=== PATIENT | female | born 1960 | race Caucasian/White ===

== ENCOUNTER 2019-07-28 02:12 | Inpatient (IN) | payer BC, MEDICARE ==
[~2019-07-28] VITALS: Ht 165.1 cm; Wt 98.7 kg
[2019-07-28] MEDS ORDERED: methylPREDNISolone SOD SUCC 125 MG/2 ML VL IV ONE (03:30)
[2019-07-28] MEDS ORDERED: IPRATROPIUM BROM 0.5 MG/2.5ML INH SOL NEB ONE (03:30)
[2019-07-28] MEDS ORDERED: ALBUTEROL SULF 2.5 MG/0.5ML(0.5%) NEB SOLN NEB ONE (03:30)
[2019-07-28 05:56] LABS: Basophils # (auto) 0.1 uL; Eosinophils # (auto) 0.1 uL; Eosinophils % (auto) 0.8 % (0.0-7.0); Hematocrit 37.6 % (36.0-46.0); Hemoglobin 12.9 g/dL (12.2-16.2); Lymphocytes # (auto) 0.6 uL; Lymphocytes % (auto) 6.5 % (10.0-50.0); Mean Corpuscular Hemoglobin 32.1 pg (28.0-32.0); Mean Corpuscular Hgb Conc. 34.3 g/dL (32.0-36.0); Mean Corpuscular Volume 93.6 fL (80.0-100.0); Monocytes # (auto) 0.2 uL; Monocytes % (auto) 2.2 % (0.0-12.0); Neutrophils # (auto) 8.5 uL; Neutrophils % (auto) 89.5 % (37.0-80.0); Platelet Count (auto) 186 10^3/uL (140-450); Red Blood Cells 4.02 10^6/uL (4.0-5.20); Red Cell Distribution Width 14.8 % (11.8-14.3); White Blood Cell 9.5 10^3/uL (4.4-10.8)
[2019-07-28 06:22] LABS: Albumin 3.2 g/dL (3.4-5.0); Anion Gap 5 (5-15); Blood Urea Nitrogen 10 mg/dL (7-18); Calcium 8.3 mg/dL (8.5-10.1); Carbon Dioxide 29 mmol/L (21-32); Chloride 106 mmol/L (98-107); Glucose 109 mg/dL (74-106); Sodium 140 mmol/L (136-145)
[2019-07-28 06:24] LABS: INR 0.96 (0.9-1.15); Partial Thromboplastin Time 25.3 sec (23.64-32.05)
[2019-07-28 06:27] LABS: Alanine Aminotransferase 30 U/L (13-56); Alkaline Phosphatase 78 U/L (45-117); Aspartate Aminotransferase 16 U/L (15-37); BUN/Creatinine Ratio 15.6; GFR African American 122 mL/min; GFR Non-African American 101 mL/min; Total Protein 6.6 g/dL (6.4-8.2)
[2019-07-28 06:28] LABS: Potassium 2.4 mmol/L (3.5-5.1)
[2019-07-28] MEDS ORDERED: POTASSIUM EFFERVESENT TAB 25 MEQ PO ONE (06:45)
[2019-07-28] MEDS ORDERED: POTASSIUM CHL 20MEQ/100ML 100 ML IV ONE (06:45)
[2019-07-28] MEDS ORDERED: IOHEXOL 350 MG/ML 100ML IJ ONE (07:08)
[2019-07-28] MEDS ORDERED: diphenhdrAMINE HCL 50 MG/1 ML VL IV ONE (07:15)
[2019-07-28] MEDS ORDERED: FUROSEMIDE 20 MG/2 ML VIAL IV ONE ×2 (07:15→13:00)
[2019-07-28 07:38] LABS: Urine Bacteria FEW /hpf (None Seen); Urine Blood Negative /uL (Negative); Urine Specific Gravity 1.013 (1.001-1.035); Urine WBC 3 /hpf (0 - 5)
[2019-07-28] MEDS ORDERED: DOCUSATE SOD 100 MG CAP PO PRN (08:00)
[2019-07-28] MEDS ORDERED: ONDANSETRON HCL 4 MG/2 ML VIAL IV PRN ×2 (08:00→08:15)
[2019-07-28] MEDS ORDERED: ATENOLOL 25 MG TAB PO ONE (08:00)
[2019-07-28] MEDS ORDERED: MORPHINE SULF INJ 2 MG/ML SYRINGE 1ML IV PRN (08:00)
[2019-07-28] MEDS ORDERED: NITROGLYCERIN 0.4 MG SL TAB SL PRN (08:00)
[2019-07-28] MEDS ORDERED: ACETAMINOPHEN 325 MG TAB PO PRN (08:00)
[2019-07-28] MEDS ORDERED: LORazepam 0.5 MG TAB PO PRN (08:15)
[2019-07-28] MEDS ORDERED: ASPirin 81 mg TAB PO ONE (10:00)
[2019-07-28 11:00] VITALS: BP 136/75
--- NOTE | 2019-07-28 11:55 | NUR ---
CAME ON WC FROM ER, RECEIVED, PATIENT ALERT AND ORIENTED X4, NOT IN DISTRESS, CLEAR BILATERAL LUNG SOUNDS SOUND NOTED, RR=18 SAT=94%, DEEP BREATHING AND COUGHING ENCOURAGED, DEMONSTRATED WELL, SR R=76 ON TELE MONITOR DENIED CHEST PAIN AT THIS MOMENT, ABDOMEN SOFT WITH ACTIVE BS, LAT BM THIS MORNING REPORTED, SKIN DRY AND INTACT, RADIAL AND PEDAL PULSES PALPABLE, CAP REFILL <3 SECONDS, RESTING ON BED, HEAD OF BED ELEVATED, BED ON LOWER POSITION, RAILS UP, CALL LIGHT ON REACH, WILL CONTINUE MONITORING.
--- NOTE | 2019-07-28 12:30 | NUR ---
DR. VALERIO WAS CONTACTED FOR FOLLOW UP AND UPDATES, WILL FOLLOW UP WITH THE PATIENT REPORTED, WILL CONTINUE MONITORING.
[2019-07-28 13:00] VITALS: BP 148/72
[2019-07-28] MEDS ORDERED: POTASSIUM CHL 20 Meq TABLET PO ONE (13:00)
[2019-07-28] MEDS ORDERED: LISINOPRIL 10 MG TAB PO ONE (13:15)
[2019-07-28] MEDS ORDERED: ZALE10CA44 PO (13:16)
[2019-07-28] MEDS ORDERED: TIZA4CAP PO (13:16)
[2019-07-28] MEDS ORDERED: VERA120T10 PO (13:16)
[2019-07-28] MEDS ORDERED: HYDR25TA4 PO (13:16)
[2019-07-28] MEDS ORDERED: MULT-2 OR (13:16)
[2019-07-28] MEDS ORDERED: ATOR20TA50 PO (13:16)
[2019-07-28] MEDS ORDERED: OME20GT GT (13:16)
[2019-07-28] MEDS ORDERED: BUPR200T2 PO (13:16)
[2019-07-28] MEDS ORDERED: CITA-73 PO (13:16)
[2019-07-28] MEDS ORDERED: ASPI-404 PO (13:16)
[2019-07-28] MEDS ORDERED: ATEN-60 PO (13:16)
[2019-07-28] MEDS ORDERED: POTA1TAB61 PO (13:16)
[2019-07-28] MEDS: HYDROcodone-ACET 5/325MG TAB PO PRN (15:12)
[2019-07-28 15:18] VITALS: BP 142/77
[2019-07-28 16:08] LABS: Alcohol, Urine < 3.0 mg/dL (0-5); Amphetamine Screen, Urine NEGATIVE (NEGATIVE); Barbiturate Scree,Urine NEGATIVE (NEGATIVE); Benzodiazephine Screen, Urine NEGATIVE (NEGATIVE); Cannabinoid Screen, Urine POSITIVE (NEGATIVE); Cocaine Screen, Urine NEGATIVE (NEGATIVE); Opiate Scree,Urine POSITIVE (NEGATIVE); Phencyclidine Screen, Urine NEGATIVE (NEGATIVE)
[2019-07-28 17:32] VITALS: BP 105/67
[2019-07-28] MEDS: LORazepam 0.5 MG TAB PO PRN (18:22)
[2019-07-28] MEDS: ALBUTEROL SULF 2.5 MG/0.5ML(0.5%) NEB SOLN NEB SCH (18:30)
[2019-07-28] MEDS: IPRATROPIUM BROM 0.5 MG/2.5ML INH SOL NEB SCH (18:30)
--- NOTE | 2019-07-28 19:32 | NUR ---
NOT IN DISTRESS, AMA FOR SMOKING SIGNED AND ON CHART, REPORT WAS GIVEN TO THE MEDICAL DEVICE ENGINEER RN.
--- NOTE | 2019-07-28 20:38 | NUR ---
Opening Shift Note Assumed care of patient, patient out of bed walking with family member. No S/S of distress/SOB or pain. Instructed on POC and to call for assistance PRN, will continue to monitor for changes Q1hr and PRN.
[2019-07-28 22:00] VITALS: BP 138/68
[2019-07-28] MEDS: METOPROLOL TARTRATE 25 MG TAB PO SCH (22:06)
[2019-07-28] MEDS: ATORVASTATIN 20 MG TAB PO SCH (22:07)
[2019-07-28] MEDS: MORPHINE SULFATE 4 MG/ML SYR/VIAL IV PRN (22:32)
[2019-07-29 05:09] VITALS: BP 129/59
[2019-07-29 06:08] LABS: Basophils # (auto) 0.1 uL; Basophils % (auto) 0.6 % (0.0-2.0); Eosinophils # (auto) 0.1 uL; Eosinophils % (auto) 1.1 % (0.0-7.0); Hematocrit 35.9 % (36.0-46.0); Hemoglobin 12.4 g/dL (12.2-16.2); Lymphocytes # (auto) 1.7 uL; Lymphocytes % (auto) 18.8 % (10.0-50.0); Mean Corpuscular Hemoglobin 32.8 pg (28.0-32.0); Mean Corpuscular Hgb Conc. 34.6 g/dL (32.0-36.0); Mean Corpuscular Volume 94.9 fL (80.0-100.0); Monocytes # (auto) 0.7 uL; Monocytes % (auto) 7.3 % (0.0-12.0); Neutrophils # (auto) 6.7 uL; Neutrophils % (auto) 72.2 % (37.0-80.0); Nucleated Red Blood Cells % 0.1 %; Platelet Count (auto) 185 10^3/uL (140-450); Red Blood Cells 3.78 10^6/uL (4.0-5.20); Red Cell Distribution Width 14.9 % (11.8-14.3); White Blood Cell 9.2 10^3/uL (4.4-10.8)
[2019-07-29 06:34] LABS: BUN/Creatinine Ratio 22.5; Calcium 8.1 mg/dL (8.5-10.1); Magnesium 1.7 mg/dL (1.6-2.6)
[2019-07-29 06:36] LABS: Potassium 2.9 mmol/L (3.5-5.1)
--- NOTE | 2019-07-29 06:42 | NUR ---
Called/paged Dr. Bray called re:critical K 2.9 . Waiting for call back. Continue care.
[2019-07-29] MEDS: IPRATROPIUM BROM 0.5 MG/2.5ML INH SOL NEB SCH ×3 (06:57→18:53)
[2019-07-29] MEDS: ALBUTEROL SULF 2.5 MG/0.5ML(0.5%) NEB SOLN NEB SCH ×3 (06:58→18:53)
--- NOTE | 2019-07-29 07:20 | NUR ---
REPORT GIVEN CARE ENDORSED TO DAY RN
--- NOTE | 2019-07-29 08:00 | NUR ---
RECEIVED, PATIENT ALERT AND ORIENTED X4, NOT IN DISTRESS, CLEAR BILATERAL LUNG SOUNDS SOUND NOTED, RR=18 SAT=93%, DEEP BREATHING AND COUGHING ENCOURAGED, DEMONSTRATED WELL, SR R=74 ON TELE MONITOR DENIED CHEST PAIN AT THIS MOMENT, ABDOMEN SOFT WITH ACTIVE BS, LAT BM 07/28/19 REPORTED, SKIN DRY AND INTACT, RADIAL AND PEDAL PULSES PALPABLE, CAP REFILL <3 SECONDS, RESTING ON BED, HEAD OF BED ELEVATED, BED ON LOWER POSITION, RAILS UP, CALL LIGHT ON REACH, PENDING US, KEEP NPO ORDERED, WILL CONTINUE MONITORING.
[2019-07-29 09:00] VITALS: BP 135/76
[2019-07-29] MEDS ORDERED: POTASSIUM CHL 20 Meq TABLET PO SCH (10:00)
[2019-07-29] MEDS: POTASSIUM CHL 20 Meq TABLET PO SCH ×2 (10:14→21:37)
[2019-07-29] MEDS: ASPirin 81 mg TAB PO SCH (10:15)
[2019-07-29] MEDS: FUROSEMIDE 20 MG/2 ML VIAL IV SCH (10:15)
[2019-07-29] MEDS: METOPROLOL TARTRATE 25 MG TAB PO SCH ×2 (10:16→21:38)
[2019-07-29] MEDS: LISINOPRIL 10 MG TAB PO SCH (10:16)
[2019-07-29] MEDS ORDERED: POTASSIUM CHL 20 Meq TABLET PO ONE ×2 (11:45→14:00)
--- NOTE | 2019-07-29 12:00 | NUR ---
Respiratory note: PT NOT IN ROOM DURING THE TIME TX WAS TO BE ADMINISTERED.
[2019-07-29 13:00] VITALS: BP 145/86
[2019-07-29] MEDS: MAGNESIUM SULFATE 1GM/100ML 100 ML IV SCH ×2 (13:16→14:26)
[2019-07-29] MEDS: HYDROcodone-ACET 5/325MG TAB PO PRN (15:36)
[2019-07-29 17:00] VITALS: BP 149/82
--- NOTE | 2019-07-29 19:21 | NUR ---
NOT IN DISTRESS, RESTING ON BED, HEAD OF BED ELEVATED, BED ON LOW POSITION, RAILS UP, CALL LIGHT ON REACH, REPORT WAS GIVEN TO THE SUPERVISOR PIPE FINISHING RN.
--- NOTE | 2019-07-29 20:00 | NUR ---
Opening Shift Note Assumed care of patient, awake and alert. No S/S of distress/SOB or pain. Instructed on POC and to call for assist PRN, will continue to monitor for changes Q1hr and PRN.
[2019-07-29] MEDS: ATORVASTATIN 20 MG TAB PO SCH (21:37)
[2019-07-29 22:00] VITALS: BP 151/84
[2019-07-29] MEDS: MORPHINE SULFATE 4 MG/ML SYR/VIAL IV PRN (22:44)
[2019-07-30 05:00] VITALS: BP 158/95
[2019-07-30] MEDS: IPRATROPIUM BROM 0.5 MG/2.5ML INH SOL NEB SCH ×3 (05:40→18:44)
[2019-07-30] MEDS: ALBUTEROL SULF 2.5 MG/0.5ML(0.5%) NEB SOLN NEB SCH ×3 (05:40→18:44)
[2019-07-30 06:24] LABS: BUN/Creatinine Ratio 22.1; Calcium 8.8 mg/dL (8.5-10.1); Magnesium 2.3 mg/dL (1.6-2.6); Potassium 4.8 mmol/L (3.5-5.1)
[2019-07-30] MEDS: LORazepam 0.5 MG TAB PO PRN ×2 (08:53→23:06)
[2019-07-30 09:00] VITALS: BP 145/71
[2019-07-30] MEDS: FUROSEMIDE 20 MG/2 ML VIAL IV SCH (10:25)
[2019-07-30] MEDS: ASPirin 81 mg TAB PO SCH (10:26)
[2019-07-30] MEDS: LISINOPRIL 10 MG TAB PO SCH (10:26)
[2019-07-30] MEDS: METOPROLOL TARTRATE 25 MG TAB PO SCH ×2 (10:26→21:35)
[2019-07-30] MEDS: POTASSIUM CHL 20 Meq TABLET PO SCH (10:27)
[2019-07-30] MEDS: HYDROcodone-ACET 5/325MG TAB PO PRN (10:35)
[2019-07-30 13:00] VITALS: BP 136/72
[2019-07-30] MEDS ORDERED: methylPREDNISolone SOD SUCC 40 MG/ML VL IV ONE (13:00)
[2019-07-30 17:00] VITALS: BP 135/94
--- NOTE | 2019-07-30 18:50 | NUR ---
RT NOTE RT TO SEE PT. PT WAS NO IN ROOM. RN JAYSON STATES SHE THINKS THE PT WENT OUT TO SMOKE. RT WILL RETURN LATER. CONT ORDERED
--- NOTE | 2019-07-30 19:35 | NUR ---
Opening Shift Note Assumed care of patient, awake and alert. No S/S of distress/SOB or pain. Instructed on POC and to call for assist PRN, patient verbalized understanding. Bed in lowest position, call light within reach, will continue to monitor for changes Q1hr and PRN.
[2019-07-30] MEDS: MORPHINE SULFATE 4 MG/ML SYR/VIAL IV PRN (21:33)
[2019-07-30] MEDS: methylPREDNISolone SOD SUCC 40 MG/ML VL IV SCH (21:33)
[2019-07-30] MEDS: ATORVASTATIN 20 MG TAB PO SCH (21:34)
[2019-07-30 21:40] VITALS: BP 142/91
[2019-07-31 05:15] VITALS: BP 136/87
[2019-07-31] MEDS: IPRATROPIUM BROM 0.5 MG/2.5ML INH SOL NEB SCH ×2 (05:43→12:26)
[2019-07-31] MEDS: ALBUTEROL SULF 2.5 MG/0.5ML(0.5%) NEB SOLN NEB SCH ×2 (05:43→12:26)
[2019-07-31 09:00] VITALS: BP 150/77
[2019-07-31] MEDS: ASPirin 81 mg TAB PO SCH (09:38)
[2019-07-31] MEDS: methylPREDNISolone SOD SUCC 40 MG/ML VL IV SCH (09:38)
[2019-07-31] MEDS: METOPROLOL TARTRATE 25 MG TAB PO SCH (09:39)
[2019-07-31] MEDS ORDERED: FUROSEMIDE 40 MG TAB PO SCH (10:00)
[2019-07-31] MEDS ORDERED: POTASSIUM CHL 20 Meq TABLET PO SCH (10:00)
[2019-07-31] MEDS ORDERED: LISINOPRIL 10 MG TAB PO SCH (10:00)
[2019-07-31] MEDS: HYDROcodone-ACET 5/325MG TAB PO PRN (11:12)
[2019-07-31] MEDS: LORazepam 0.5 MG TAB PO PRN (11:12)
[2019-07-31] MEDS ORDERED: POTA-220 PO (13:04)
[2019-07-31] MEDS ORDERED: DOCU100C8 PO (13:04)
[2019-07-31] MEDS ORDERED: METO-169 PO (13:04)
[2019-07-31] MEDS ORDERED: IPRIH INH (13:04)
[2019-07-31] MEDS ORDERED: ATOR20TA50 PO (13:04)
[2019-07-31] MEDS ORDERED: ALBU108A5 IN (13:04)
[2019-07-31] MEDS ORDERED: ASPI-404 PO (13:04)
[2019-07-31] MEDS ORDERED: CITA-73 PO (13:04)
[2019-07-31] MEDS ORDERED: LISI10TA6 PO (13:04)
[2019-07-31] MEDS ORDERED: FURO40TA4 PO (13:04)
[2019-07-31 14:29] VITALS: BP 150/77
== END 2019-07-31 15:30 | disposition home or self-care (01) | DRG 291 ==
LOC: ER 02:22 → TELE 02:23 → TELE-EAST 12:04 → EAST 07-30 13:35
PROVIDERS: ADMIT Hospitalist; ATTEND Hospitalist
DX: I11.0 Hypertensive heart disease with heart failure (principal); J96.01 Acute respiratory failure with hypoxia; I50.41 Acute combined systolic (congestive) and diastolic (congestive) heart failure; E78.5 Hyperlipidemia, unspecified; I27.81 Cor pulmonale (chronic); I27.29 Other secondary pulmonary hypertension; E87.6 Hypokalemia; F12.90 Cannabis use, unspecified, uncomplicated; F17.210 Nicotine dependence, cigarettes, uncomplicated; F32.9 Major depressive disorder, single episode, unspecified; E66.9 Obesity, unspecified; F41.9 Anxiety disorder, unspecified; G89.29 Other chronic pain; J44.9 Chronic obstructive pulmonary disease, unspecified; Z91.041 Radiographic dye allergy status; Z71.51 Drug abuse counseling and surveillance of drug abuser; Z68.36 Body mass index [BMI] 36.0-36.9, adult; Z71.3 Dietary counseling and surveillance
CPT/HCPCS: 36415; 71045; 71046; 76775; 78582; 80048; 80053; 80061; 80307; 81001; 83735; 83880; 84443; 84484; 85025; 85379; 85610; 85730; 87804; 93005; 93306; 94640; 96374; 96375; G0378; J2405; J3480

== ENCOUNTER → 2023-05-09 | Emergency (ER) | payer OTHER, MEDICARE ==
[~2023-05-09] VITALS: Ht 165.1 cm; Wt 100.0 kg
[~2023-05-09] MED LIST: ALBU108A5 IN; ASPI-543 PO; ATOR20TA50 PO; CITA-73 PO; DOCU-265 PO; FURO40TA4 PO; HYDR-4798 PO; HYDROcodone-ACET 5/325MG TAB PO ONE; IPRIH INH; LISI10TA34 PO; MELO7.5T7 PO; METO-289 PO; POTA-220 PO
[2023-05-09 17:21] VITALS: BP 105/66; PULSE 74; RESP 18; O2SAT 95
== END | disposition home or self-care (01) ==
LOC: ER 13:06
DX: S83.92XA Sprain of unspecified site of left knee, initial encounter (principal); S83.91XA Sprain of unspecified site of right knee, initial encounter; S93.401A Sprain of unspecified ligament of right ankle, initial encounter; M17.0 Bilateral primary osteoarthritis of knee; I10 Essential (primary) hypertension; E78.5 Hyperlipidemia, unspecified; F17.210 Nicotine dependence, cigarettes, uncomplicated; Z79.82 Long term (current) use of aspirin; Z79.899 Other long term (current) drug therapy; Z88.8 Allergy status to other drugs, medicaments and biological substances; W01.198A Fall on same level from slipping, tripping and stumbling with subsequent striking against other object, initial encounter; Y93.89 Activity, other specified; Y92.89 Other specified places as the place of occurrence of the external cause; Y99.8 Other external cause status
CPT/HCPCS: 73562; 73610

== ENCOUNTER 2024-11-12 13:11 | Emergency (ER) | payer OTHER ==
[~2024-11-12] VITALS: Ht 165.1 cm; Wt 87.3 kg
[~2024-11-12 13:11] MED LIST changes: -HYDROcodone-ACET 5/325MG TAB PO ONE
[2024-11-12 15:05] VITALS: BP 155/82; PULSE 69; RESP 16; TEMP 97.2; O2SAT 96
[2024-11-12] MEDS ORDERED: PRED20TA2 PO (15:34)
[2024-11-12] MEDS ORDERED: ACET500T58 PO (15:34)
--- NOTE | 2024-11-12 15:34 | ED.PDOC ---
Back pain HPI HPI Comments 64-year-old female presents with a chief complaint of atraumatic right lower back pain x1 month that has gradually worsened over the last week. The pain shoots down the right posterior right lower extremity. She is taking [id number] Tylenol with methocarbamol with minimal improvement. Denies history of chronic steroid use or history of osteoporosis Denies any history of cancer Denies fevers chills night sweats nausea vomiting unintentional weight loss Denies IV drug use history of HIV/TB Denies abdominal "tearing" pain Denies syncope Denies urinary incontinence or urinary changes Denies numbness tingling of the groin or inner thigh Denies previous back procedure or surgery Chief Complaint: Back Pain Time Seen by MD: 13:57 Primary Care Provider: NBA Wood Notes: Nurses Notes, Medications, Allergies Allergies: Coded Allergies: Iodine (Verified Allergy, Unknown, 07/28/19) Home Meds Active Scripts Acetaminophen (Acetaminophen) 500 Mg Tab, 500 MG PO Q6HP PRN for 10 Days, #40 TAB 0 Refills Prov:TRAMAINE NEGRON SALES AND SERVICE CHANGE LEADER 11/12/24 Prednisone (Prednisone) 20 Mg Tab, 60 MG PO DAILY for 5 Days, #15 TAB 0 Refills Prov:TRAMAINE NEGRON SALES AND SERVICE CHANGE LEADER 11/12/24 Hydrocodone-Acetaminophen (Hydrocodone Bitartrate/AC 10-325 mg) 1 Tab Tab, 1 TAB PO BID, #12 TAB Prov:MARIVEL BELLE 05/09/23 Meloxicam (Meloxicam) 7.5 Mg Tab, 1 TAB PO BID, #30 TAB Prov:MARIVEL BELLE 05/09/23 Ipratropium [place] Hfa (Atrovent Hfa) 17 Mcg Aer, 2 PUFF INH QID, #12.9 GRAMS 5 Refills Prov:JASMYN ORTIZ MD 07/31/19 Albuterol Sulfate (Albuterol Sulfate Hfa) 108 Mcg/Act Aer, 2 PUFF IN Q6HP PRN for 30 Days, #2 AER Prov:JASMYN ORTIZ MD 07/31/19 Potassium Chloride (Klor-Con M20) 20 Meq Tab, 20 MEQ PO DAILY, #7 TAB Prov:JASMYN ORTIZ MD 07/31/19 Lisinopril (Lisinopril) 10 Mg Tab, 20 MG PO DAILY, #30 TAB Prov:JASMYN ORTIZ MD 07/31/19 Furosemide (Furosemide) 40 Mg Tab, 40 MG PO DAILY, #30 TAB Prov:JASMYN ORTIZ MD 07/31/19 Docusate Sodium (Docusate Sodium) 100 Mg Cap, 100 MG PO BIDPRN PRN, #60 CAP Prov:JASMYN ORTIZ MD 07/31/19 Atorvastatin Calcium (ATORVASTATIN CALCIUM) 20 Mg Tab, 40 MG PO HS, #30 TAB Prov:JASMYN ORTIZ MD 07/31/19 Metoprolol Succinate (Metoprolol Succinate Er) 50 Mg Tab, 1 TAB PO DAILY, #30 TAB 5 Refills Prov:JASMYN ORTIZ MD 07/31/19 Aspirin (Aspir-Low) 81 Mg Tab, 81 MG PO DAILY for 30 Days, #30 MG Prov:JASMYN ORTIZ MD 07/31/19 Citalopram Hydrobromide (Citalopram Hydrobromide) 40 Mg Tab, 40 MG PO DAILY, #30 TAB Prov:JASMYN ORTIZ MD 07/31/19 Information Source: Patient Mode of Arrival: Ambulatory Past Medical History PAST MEDICAL HISTORY: Anxiety, High Lipids, HTN Surgical History: GUIDANCE AND CONTROL SYSTEM ENGINEER History: No Pertinent GUIDANCE AND CONTROL SYSTEM ENGINEER History Family History Family History: Reviewed,noncontributory to illness Social History Smoker: Less Than 1 Pack/Day Alcohol: Occasionally Drugs: Marijuana Lives In: Home All Other Systems: Reviewed and Negative (per hpi) Physical Exam General Appearance: No Apparent Distress, Normal HEENT: Normal ENT Inspection, Pharynx Normal, TMs Normal Neck: Full Range of Motion, Non-Tender, Normal, Normal Inspection Respiratory: Chest Non-Tender, Lungs Clear, No Accessory Muscle Use, No Respiratory Distress, Normal Breath Sounds Cardiovascular: No Edema, No JVD, No Murmur, No Gallop, Normal Peripheral Pulses, Regular Rate/Rhythm Breast Exam: Deferred Gastrointestinal: No Organomegaly, Non Tender, No Pulsatile Mass, Normal Bowel Sounds, Soft Genitalia: Deferred Pelvic: Deferred Rectal: Deferred Extremities: No calf tenderness, Normal capillary refill, Normal inspection, Normal range of motion, Non-tender, No pedal edema Musculoskeletal : Extremity Location: Back (No gross abnormality on inspection. No ecchymosis. No midline tenderness. No bony step-offs on palpation. Lumbar paraspinal TTP.) Apperance: Normal Neurologic: Alert, entry level manufacturing engineer II-XII nml as Tested, No Motor Deficits, Normal Affect, Normal Mood, No Sensory Deficits Cerebellar Function: Normal Reflexes: Normal Skin: Dry, Normal Color, Warm Lymphatic: No Adenopathy Was a procedure done? Was a procedure done?: No Back Pain Differential Dx Differential Diagnosis: Musculoskeletal Pain X-Ray, Labs, Meds, VS Vital Signs Date Time Temp Pulse Resp B/P (MAP) Pulse Ox O2 Delivery O2 Flow Rate FiO2 11/12/24 15:05 97.2 69 16 155/82 (106) 96 97.2 11/12/24 15:05 69 16 96 Room Air 11/12/24 14:24 97.2 69 16 155/82 (106) 96 97.2 X-Ray, Labs, Meds, VS Comment I considered cauda equina, spinal cord compression, vertebral malignancy/mets, acute spinal fracture, vertebral osteomyelitis, epidural abscess, infected or obstructed kidney stone, however this is less likely as the patient does not present with lower back pain red flags symptoms such as bowel or bladder dysfu nction, saddle anesthesia, paresthesia, and without any history of malignancy or recent back trauma or spinal interventions. Presentation most consistent with nonemergent musculoskeletal etiology ED workup: Defer imaging and lab work for outpatient follow up at this time Disposition: Discharge. Strict return precautions discussed with the patient with full understanding. Supportive care advised Massage muscles with cold pack or ice for 20 minutes 4 times per day. Usually most useful if there is swelling during the first 48 hours Heating pad on the most painful area for 20 minutes to relieve muscle spasm Sleep and the most comfortable sleeping position (usually on the side with knees bent) Light stretching, no strenuous activity, avoid frequent bending, avoid carrying heavy objects Discussed possible benefits of yoga and acupuncture Return precautions discussed including Inability to walk/bear weight Paresthesia/weakness/leg pain Fecal/urinary incontinence Any worsening symptoms Time of 1ST Reevaluation: 15:09 Reevaluation 1ST: Improved Patient Education/Counseling: Diagnosis, Treatment Family Education/Counseling: Diagnosis, Treatment Departure 1 Departure Time of Disposition: 15:33 Impression: Primary Impression: Lumbar radiculopathy Disposition: 01 HOME / SELF CARE / HOMELESS Condition: Stable e-Prescriptions Acetaminophen (Acetaminophen) 500 Mg Tab 500 MG PO Q6HP PRN for 10 Days, #40 TAB 0 Refills Prov: TRAMAINE NEGRON NP 11/12/24 Prednisone (Prednisone) 20 Mg Tab 60 MG PO DAILY for 5 Days, #15 TAB 0 Refills Prov: TRAMAINE NEGRON NP 11/12/24 Critical Care Note Critical Care Time?: No Stability Stability form required: No Heart Score Heart Score: Heart Score Response (Comments) Value History N/A 0 EKG N/A 0 Age N/A 0 Risk Factors N/A 0 Troponin N/A 0 Total 0 TRAMAINE NEGRON NP November 12, 2024 15:34
== END 2024-11-12 15:33 | disposition home or self-care (01) ==
LOC: ER 13:16
DX: M54.16 Radiculopathy, lumbar region (principal); F41.9 Anxiety disorder, unspecified; E78.5 Hyperlipidemia, unspecified; I10 Essential (primary) hypertension; F17.210 Nicotine dependence, cigarettes, uncomplicated; F10.90 Alcohol use, unspecified, uncomplicated; Y90.9 Presence of alcohol in blood, level not specified; F19.90 Other psychoactive substance use, unspecified, uncomplicated; Z79.52 Long term (current) use of systemic steroids; Z79.82 Long term (current) use of aspirin; Z79.899 Other long term (current) drug therapy; Z88.8 Allergy status to other drugs, medicaments and biological substances; Z91.041 Radiographic dye allergy status

== ENCOUNTER 2024-11-25 06:16 | Emergency (ER) | payer OTHER ==
[~2024-11-25] VITALS: Ht 165.1 cm; Wt 84.8 kg
[~2024-11-25 06:16] MED LIST changes: +ACET500T58 PO; +PRED20TA2 PO
--- NOTE | 2024-11-25 07:26 | ED.PDOC ---
Back pain HPI HPI Comments 64 y/o F, with PMHx of chronic back pain, anxiety, HLD, and HTN presents to the ED for CC of back pain. Patient reports, she has been experiencing lower lumbar back pain that radiates to her bilateral legs xweeks. Patient reports, she was seen at [facility] for symptoms on 11/12/24 and was prescribed Prednisone which temporarily relieved symptoms. Patient endorses, symptoms have now intensified with new symptoms of leg numbness. Patient comments, having an appointment with [place] PCP [id number] however, pain is so sever she is unable to wait. No other symptoms or modifying factors present at this time. Chief Complaint: Back Pain Time Seen by MD: 07:07 Primary Care Provider: NBA Wood Notes: Nurses Notes, Medications, Allergies Allergies: Coded Allergies: Iodine (Verified Allergy, Unknown, 07/28/19) Home Meds Active Scripts Acetaminophen (Acetaminophen) 500 Mg Tab, 500 MG PO Q6HP PRN for 10 Days, #40 TAB 0 Refills Prov:TRAMAINE NEGRON BUFFER COPPER 11/12/24 Prednisone (Prednisone) 20 Mg Tab, 60 MG PO DAILY for 5 Days, #15 TAB 0 Refills Prov:TRAMAINE NEGRON BUFFER COPPER 11/12/24 Hydrocodone-Acetaminophen (Hydrocodone Bitartrate/AC 10-325 mg) 1 Tab Tab, 1 TAB PO BID, #12 TAB Prov:MARIVEL BELLE 05/09/23 Meloxicam (Meloxicam) 7.5 Mg Tab, 1 TAB PO BID, #30 TAB Prov:MARIVEL BELLE 05/09/23 Ipratropium [place] Hfa (Atrovent Hfa) 17 Mcg Aer, 2 PUFF INH QID, #12.9 GRAMS 5 Refills Prov:JASMYN ORTIZ MD 07/31/19 Albuterol Sulfate (Albuterol Sulfate Hfa) 108 Mcg/Act Aer, 2 PUFF IN Q6HP PRN for 30 Days, #2 AER Prov:JASMYN ORTIZ MD 07/31/19 Potassium Chloride (Klor-Con M20) 20 Meq Tab, 20 MEQ PO DAILY, #7 TAB Prov:JASMYN ORTIZ MD 07/31/19 Lisinopril (Lisinopril) 10 Mg Tab, 20 MG PO DAILY, #30 TAB Prov:JASMYN ORTIZ MD 07/31/19 Furosemide (Furosemide) 40 Mg Tab, 40 MG PO DAILY, #30 TAB Prov:JASMYN ORTIZ MD 07/31/19 Docusate Sodium (Docusate Sodium) 100 Mg Cap, 100 MG PO BIDPRN PRN, #60 CAP Prov:JASMYN ORTIZ MD 07/31/19 Atorvastatin Calcium (ATORVASTATIN CALCIUM) 20 Mg Tab, 40 MG PO HS, #30 TAB Prov:JASMYN ORTIZ MD 07/31/19 Metoprolol Succinate (Metoprolol Succinate Er) 50 Mg Tab, 1 TAB PO DAILY, #30 TAB 5 Refills Prov:JASMYN ORTIZ MD 07/31/19 Aspirin (Aspir-Low) 81 Mg Tab, 81 MG PO DAILY for 30 Days, #30 MG Prov:JASMYN ORTIZ MD 07/31/19 Citalopram Hydrobromide (Citalopram Hydrobromide) 40 Mg Tab, 40 MG PO DAILY, #30 TAB Prov:JASMYN ORTIZ MD 07/31/19 Information Source: Patient Mode of Arrival: Ambulatory Timing: Days Duration: Since onset Location of Back pain: (B) Lumbar Severity: Moderate Prehospital treatment: None Onset: Spontaneous History of: Chronic Back Pain Modifying Factors: Nothing Associated signs and symptoms: None Past Medical History PAST MEDICAL HISTORY: Anxiety, High Lipids, HTN Surgical History: SURFACE TO AIR WEAPONS OFFICER History: No Pertinent SURFACE TO AIR WEAPONS OFFICER History Family History Family History: Reviewed,noncontributory to illness Social History Smoker: Less Than 1 Pack/Day Alcohol: Occasionally Drugs: Marijuana Lives In: Home Constitutional: denies: chills, diaphoresis, fatigue, fever, malaise, sweats, weakness, others EENTM: denies: blurred vision, double vision, ear bleeding, ear discharge, ear drainage, ear pain, ear ringing, eye pain, eye redness, hearing loss, mouth pain, mouth swelling, nasal discharge, nose bleeding, nose congestion, nose pain, photophobia, tearing, throat pain, throat swelling, voice changes, others Respiratory: denies: cough, hemoptysis, orthopnea, SOB at rest, shortness of breath, SOB with excertion, stridor, wheezing, others Cardiovascular: denies: chest pain, dizzy spells, diaphoresis, Dyspnea on exertion, edema, irregular heart beat, left arm pain, lightheadedness, palpitations, PND, syncope, others Gastrointestinal: denies: abdomen distended, abdominal pain, blood streaked bowels, constipated, diarrhea, dysphagia, difficulty swallowing, hematemesis, melena, nausea, poor appetite, poor fluid intake, rectal bleeding, rectal pain, vomiting, others Genitourinary: denies: abnormal vagina bleeding, burning, dyspareunia, dysuria, flank pain, frequency, hematuria, incontinence, pain, , vagina disc harge, urgency, others Neurological: reports: numbness; denies: dizziness, fainting, headache, left sided numbness, left sided weakness, paresthesia, pre-existing deficit, right sided numbness, right sided weakness, seizure, speech problems, tingling, tremors, weakness, others Musculoskeletal: reports: back pain, others (leg pain); denies: gout, joint pain, joint swelling, muscle pain, muscle stiffness, neck pain Integumetry: denies: bruises, change in color, change in hair/nails, dryness, laceration, lesions, lumps, rash, wounds, others Allergic/Immunocompromised: denies: Difficulty Healing, Frequent Infections, Hives, Itching, others Hematologic/Lymphatic: denies: anemia, blood clots, easy bleeding, easy bruisin g, swollen glands, others Endocrine: denies: excessive hunger, excessive sweating, excessive thirst, excessive urination, flushing, intolerance to cold, intolerance to heat, unexplained weight gain, unexplained weight loss, others Psychiatric: denies: anxiety, bipolar disorder, depression, hopeless, panic disorder, schizophrenia, sleepless, suicidal, others All Other Systems: Reviewed and Negative Physical Exam General Appearance: Moderate Distress HEENT: Normal ENT Inspection, Pharynx Normal, TMs Normal Neck: Full Range of Motion, Non-Tender, Normal, Normal Inspection Respiratory: Chest Non-Tender, Lungs Clear, No Accessory Muscle Use, No Respiratory Distress, Normal Breath Sounds Cardiovascular: No Edema, No JVD, No Murmur, No Gallop, Normal Peripheral Pulses, Regular Rate/Rhythm Breast Exam: Deferred Gastrointestinal: No Organomegaly, Non Tender, No Pulsatile Mass, Normal Bowel Sounds, Soft Genitalia: Deferred Pelvic: Deferred Rectal: Deferred Extremities: No calf tenderness, Normal capillary refill, Normal inspection, Normal range of motion, Non-tender, No pedal edema Musculoskeletal : Apperance: Normal Neurologic: Alert, thaw shed heater tender II-XII nml as Tested, No Motor Deficits, Normal Affect, Normal Mood, No Sensory Deficits Cerebellar Function: Normal Reflexes: Normal Skin: Dry, Normal Color, Warm Peripheral Pulses: 3+ Radial (R), 3+ Radial (L) Lymphatic: No Adenopathy Was a procedure done? Was a procedure done?: No Back Pain Differential Dx Differential Diagnosis: Musculoskeletal Pain, Strain X-Ray, Labs, Meds, VS Vital Signs Date Time Temp Pulse Resp B/P (MAP) Pulse Ox O2 Delivery O2 Flow Rate FiO2 11/25/24 06:27 97.6 70 16 169/118 (135) 96 97.6 Patient alert. Complaining of back pain. Blood pressure elevated. Saturation pristine on room air. Uses walker to help her walk. No new symptom. Continues to smoke cigarettes. Counseled patient on effects of smoking cigarettes for 15 minutes. She was given steroid. She was given pain medication. Spoke with [facility] physician. Explained to the patient that she will need to follow up hit [facility] he is clinic as per her physician. Was told to come back if there is any problem. Time of 1ST Reevaluation: 07:37 Reevaluation 1ST: Improved Patient Education/Counseling: Diagnosis, Treatment Family Education/Counseling: No Family Present Departure 1 Departure Time of Disposition: 07:37 Impression: Primary Impression: Degenerative disc disease Qualified Codes: M51.369 - Other intervertebral disc degeneration, lumbar region without mention of lumbar back pain or lower extremity pain Additional Impression: Hypertensive urgency Disposition: 01 HOME / SELF CARE / HOMELESS Condition: Good Discharged With: Self Critical Care Note Critical Care Time?: No Stability Stability form required: No Heart Score Heart Score: Heart Score Response (Comments) Value History N/A 0 EKG N/A 0 Age N/A 0 Risk Factors N/A 0 Troponin N/A 0 Total 0 I personally scribed for ANAT CORREIA MD ([email or web address]) on 11/25/24 at 07:26. Electronically submitted by Dianelys Arteaga ([email or web address]). ANAT CORREIA MD November 25, 2024 07:26
[2024-11-25] MEDS: HYDROcodone-ACET 10/325MG TAB PO ONE (08:02)
[2024-11-25] MEDS: methylPREDNISolone SOD SUCC 125 MG/2 ML VL IM ONE (08:02)
[2024-11-25] MEDS: cloNIDine HCL 0.1 MG TAB PO ONE (08:03)
[2024-11-25 08:06] VITALS: BP 149/67; PULSE 59; RESP 16; TEMP 98; O2SAT 98
== END 2024-11-25 08:06 | disposition home or self-care (01) ==
LOC: ER 06:18
DX: M51.369 Other intervertebral disc degeneration, lumbar region without mention of lumbar back pain or lower extremity pain (principal); I16.0 Hypertensive urgency; E78.5 Hyperlipidemia, unspecified; F17.210 Nicotine dependence, cigarettes, uncomplicated; G89.29 Other chronic pain; I10 Essential (primary) hypertension; Z79.52 Long term (current) use of systemic steroids; Z79.82 Long term (current) use of aspirin; Z79.899 Other long term (current) drug therapy; Z88.8 Allergy status to other drugs, medicaments and biological substances; Z91.041 Radiographic dye allergy status
CPT/HCPCS: 96372; 99283; J2919